=== PATIENT | female | born 1980 | race African-American/Black ===

== ENCOUNTER 2021-07-09 10:18 | Inpatient (IN) | payer BC, MEDICAID ==
[~2021-07-09] VITALS: Ht 167.6 cm; Wt 73.0 kg
[2021-07-09] MEDS ORDERED: MISOPROSTOL 100MCG TABLET VG SCH (10:45)
[2021-07-09] MEDS ORDERED: NALOXONE HCL 0.4 MG/ML 1ML VIAL IM PRN (10:45)
[2021-07-09] MEDS ORDERED: LIDOCAINE HCL 1% 20ML VIAL (Pyxis) INJ INFIL SCH (10:45)
[2021-07-09] MEDS ORDERED: BUTORPHANOL TARTRATE 2 MG/ML VIAL IV PRN (10:45)
[2021-07-09] MEDS ORDERED: METHYLERGONOVINE MALEATE 0.2 MG/ML IM PRN (10:45)
[2021-07-09] MEDS ORDERED: CARBOPROST TROMETHAMINE 250 MCG/ML AMPUL IM PRN (10:45)
[2021-07-09 11:00] LABS: BASOPHILS % 0.4 % (0.0-2.0); EOSINOPHILS % 1.2 % (0.0-5.0); HEMATOCRIT. 40.1 % (36.0-48.0); HEMOGLOBIN. 13.5 g/dL (12.0-16.0); LYMPHOCYTES % 15.6 % (20.0-50.0); MEAN CORPUSCULAR HEMOGLOBIN 30.9 pg (28.0-32.0); MEAN CORPUSCULAR VOLUME 91.9 fL (81.0-99.0); MEAN PLATELET VOLUME 8.2 fl (7.4-10.4); MONOCYTES % 6.5 % (2.0-8.0); NEUTROPHILS % 76.3 % (40.0-76.0); PLATELET 357 x1000/uL (130-400); RED BLOOD CELL COUNT 4.36 mill/uL (4.2-5.4)
[2021-07-09 11:12] LABS: CHLORIDE 107 mEq/L (98-107); INR 0.9; PARTIAL THROMBOPLASTIN TIME 33.3 sec (23.4-31.0)
[2021-07-09 11:13] LABS: CLARITY URINE CLEAR (CLEAR); COLOR URINE YELLOW (YELLOW); KETONES URINE NEGATIVE (NEGATIVE); LEUKOCYTE ESTERASE URINE NEGATIVE (NEGATIVE); NITRITE URINE NEGATIVE (NEGATIVE); OCCULT BLOOD URINE 1+ (NEGATIVE); PH URINE 6.5 (4.5-8.0); PROTEIN URINE 1+ (NEGATIVE); SPECIFIC GRAVITY URINE 1.013 (1.005-1.030); UROBILINOGEN URINE 0.2 E.U./dL (0.2-1.0)
[2021-07-09] MEDS ORDERED: LACTATED RINGERS 1,000 ML IV SCH (11:15)
[2021-07-09] MEDS ORDERED: DEXT 5%/LR + PITOCIN 20UNITS/L 1,000 ML IV SCH ×2 (11:15→15:00)
[2021-07-09 11:33] LABS: *AMPHETAMINES SCREEN URINE NEGATIVE (NEGATIVE); *BARBITURATES SCREEN URINE NEGATIVE (NEGATIVE); *BENZODIAZEPINES SCREEN URINE NEGATIVE (NEGATIVE); *COCAINE SCREEN URINE NEGATIVE (NEGATIVE); CANNABINOID URINE SCREEN NEGATIVE (NEGATIVE); METHADONE URINE SCREEN NEGATIVE (NEGATIVE); OPIATES URINE SCREEN NEGATIVE (NEGATIVE); PHENCYCLIDINE URINE SCREEN NEGATIVE (NEGATIVE)
[2021-07-09 12:40] LABS: HEPATITIS B SURFACE ANTIGEN NEGATIVE
[2021-07-09] MEDS ORDERED: IBUPROFEN 800MG TABLET PO PRN (15:00)
[2021-07-09] MEDS ORDERED: DIPHENHYDRAMINE 25MG CAPSULE PO PRN (15:00)
[2021-07-09] MEDS ORDERED: IBUPROFEN 400MG TABLET PO PRN (15:00)
[2021-07-09] MEDS ORDERED: RHO(D) IMMUNE GLOBULIN 300 MCG/SYR IM PRN (15:00)
[2021-07-09 18:00] VITALS: BP 145/79
[2021-07-09 19:30] VITALS: BP 121/65
[2021-07-10 04:00] VITALS: BP 133/73
[2021-07-10] MEDS ORDERED: TETANUS, DIPHTHERIA, PERTUSSIS VAC/PF 0.5ML (>10YR OLD) IM ONE (06:00)
[2021-07-10 08:30] VITALS: BP 132/66
[2021-07-10 12:30] LABS: BASOPHILS % 0.2 % (0.0-2.0); HEMOGLOBIN. 12.6 g/dL (12.0-16.0); LYMPHOCYTES % 13.5 % (20.0-50.0); MEAN CORPUSCULAR HEMOGLOBIN 31.7 pg (28.0-32.0); MEAN CORPUSCULAR VOLUME 90.2 fL (81.0-99.0); MEAN PLATELET VOLUME 8.1 fl (7.4-10.4); MONOCYTES % 5.1 % (2.0-8.0); NEUTROPHILS % 80.2 % (40.0-76.0); PLATELET 318 x1000/uL (130-400); RED BLOOD CELL COUNT 3.99 mill/uL (4.2-5.4); RED CELL DISTRIBUTION WIDTH 14.3 % (11.6-14.6)
== END 2021-07-10 14:00 | disposition home or self-care (01) | DRG 805 ==
LOC: 8 EST LDRP 10:18 → OBSVTOIN 10:18 → 8 EST A/PP 17:19 → 8 EST LDRP 17:54
PROVIDERS: ADMIT Obstetrics & Gynecology; ATTEND Obstetrics & Gynecology
PROC: 10E0XZZ Delivery of Products of Conception, External Approach (ICD-10-PCS; principal; 2021-07-09)
DX: O36.4XX0 Maternal care for intrauterine death, not applicable or unspecified (principal); O60.14X0 Preterm labor third trimester with preterm delivery third trimester, not applicable or unspecified; Z37.1 Single stillbirth; O34.211 Maternal care for low transverse scar from previous cesarean delivery; Z20.822 Contact with and (suspected) exposure to COVID-19; O32.1XX0 Maternal care for breech presentation, not applicable or unspecified; Z3A.36 36 weeks gestation of pregnancy
CPT/HCPCS: 36415; 76805; 80053; 80305; 81003; 85025; 86592; 86703; 86762; 86850; 86870; 86886; 86900; 87340; 87426; 88307; 90384; 90715; 99281; J0595; J2590; J7120; A4315